=== PATIENT | male | born 1975 | race Two or more races ===

== ENCOUNTER 2018-11-12 18:15 | Emergency (ER) | payer BC, MEDICAID ==
[~2018-11-12] VITALS: Ht 177.8 cm; Wt 93.9 kg
[2018-11-12 18:52] LABS: BASOPHILS # (AUTO) 0.1 /CMM (0.0-0.2); EOSINOPHILS % (AUTO) 2.7 % (0.0-6.0); HEMATOCRIT 44 % (39-51); HEMOGLOBIN 14.7 g/dL (13.5-17.5); LYMPHOCYTES # (AUTO) 4.1 /CMM (0.8-4.8); LYMPHOCYTES % (AUTO) 41.2 % (20.0-44.0); MEAN CORPUSCULAR HGB CONC 33 g/dl (31.0-36.0); MEAN CORPUSCULAR VOLUME 92 fL (80-96); MONOCYTES # (AUTO) 0.9 /CMM (0.1-1.30); MONOCYTES % (AUTO) 8.9 % (2.0-12.0); NEUTROPHILS # (AUTO) 4.6 /CMM (1.8-8.9); NEUTROPHILS % (AUTO) 46.2 % (43.0-81.0); PLATELET COUNT (AUTO) 359 /CMM (150-450); RED BLOOD CELL COUNT(AUTO) 4.81 MIL/uL (4.5-6.0); WHITE BLOOD COUNT (AUTO) 9.9 K/uL (4.3-11.0)
[2018-11-12] MEDS ORDERED: ASPIRIN 325 MG TABLET ONE (18:53)
[2018-11-12] MEDS ORDERED: NITROGLYCERIN PACKET 1 GM PACKET ONE (18:53)
[2018-11-12 18:58] VITALS: BP 151/124
[2018-11-12] MEDS ORDERED: NITROGLYCERIN PACKET 1 GM PACKET TD ONE (19:00)
[2018-11-12] MEDS ORDERED: ASPIRIN 325 MG TABLET PO ONE (19:00)
--- NOTE | 2018-11-12 19:00 | NUR ---
Dizzy/chest pain "Not feeling good Dizzy and having pain on chest have same, TIGHTNESS, DENIES HUFF. SOB N/V
[2018-11-12 19:07] LABS: CALCIUM, SERUM 9.5 mg/dL (8.5-10.1); CARBON DIOXIDE 31 mmol/L (21-32); CHLORIDE 103 mmol/L (98-107); CREATININE 0.8 mg/dL (0.6-1.3); GLUCOSE 97 mg/dL (74-106); POTASSIUM 2.9 mmol/L (3.5-5.1); SODIUM SERUM 140 mmol/L (136-145); UREA NITROGEN, BLOOD 16 mg/dL (7-18)
[2018-11-12 19:14] LABS: ALANINE AMINOTRANSFERASE 52 U/L (12-78); ALKALINE PHOSPHATASE 80 U/L (46-116); ASPARTATE AMINOTRANSFERASE 25 U/L (15-37); BILIRUBIN,DIRECT 0.1 mg/dL (0.0-0.2); BILIRUBIN,TOTAL 0.4 mg/dL (0.2-1.0); TOTAL PROTEIN, SERUM 8.1 g/dL (6.4-8.2)
--- NOTE | 2018-11-12 19:45 | NUR ---
PT HANDOFF TO [facility], PT STABLE AT THIS TIME ,
--- NOTE | 2018-11-12 19:55 | NUR ---
IV removed. Catheter intact and site benign. Pressure and 4x4 applied to site. No bleeding noted.Patient discharged to home in stable condition. Written and verbal after care instructions given. Patient verbalizes understanding of instruction. PT AMBULATORY WITH STEADY GAIT.
== END 2018-11-12 19:57 | disposition home or self-care (01) ==
LOC: ER 18:19
DX: R07.89 Other chest pain (principal); I10 Essential (primary) hypertension; E78.00 Pure hypercholesterolemia, unspecified; I51.7 Cardiomegaly; E87.6 Hypokalemia
CPT/HCPCS: 36415; 71045; 80048; 80076; 84484; 85025; 93005; 99284; A4606

== ENCOUNTER 2018-12-21 20:17 | Emergency (ER) | payer BC, MEDICAID ==
[~2018-12-21] VITALS: Ht 180.3 cm; Wt 86.2 kg
--- NOTE | 2018-12-21 20:23 | NUR ---
PT BIBSELF C/C HUFF AND TINGLING BILAT UPPER EXTREMITIES. PT AOX4. NAD NOTED. RESP EVEN AND UNLABORED. [facility] SPEAKING. PT ON MONITOR IN BED 9. WILL CONTINUE TO MONITOR.
--- NOTE | 2018-12-21 20:30 | NUR ---
VASOTEC UNAVAILABLE IN OMNICELL. RECEIVED FROM [facility].
--- NOTE | 2018-12-21 20:41 | NUR ---
TECH AT BEDSIDE FOR EKG
--- NOTE | 2018-12-21 20:41 | NUR ---
BLOOD DRAWN AND GIVEN TO LAB
[2018-12-21 20:45] LABS: BASOPHILS # (AUTO) 0.1 /CMM (0.0-0.2); BASOPHILS % (AUTO) 1.4 % (0.0-2.0); EOSINOPHILS % (AUTO) 2.8 % (0.0-6.0); HEMATOCRIT 39 % (39-51); HEMOGLOBIN 13.5 g/dL (13.5-17.5); LYMPHOCYTES # (AUTO) 4.7 /CMM (0.8-4.8); LYMPHOCYTES % (AUTO) 45.7 % (20.0-44.0); MEAN CORPUSCULAR HGB CONC 34 g/dl (31.0-36.0); MEAN CORPUSCULAR VOLUME 91 fL (80-96); MONOCYTES # (AUTO) 0.8 /CMM (0.1-1.30); MONOCYTES % (AUTO) 8.2 % (2.0-12.0); NEUTROPHILS # (AUTO) 4.3 /CMM (1.8-8.9); NEUTROPHILS % (AUTO) 41.9 % (43.0-81.0); PLATELET COUNT (AUTO) 351 /CMM (150-450); RED BLOOD CELL COUNT(AUTO) 4.32 MIL/uL (4.5-6.0); WHITE BLOOD COUNT (AUTO) 10.3 K/uL (4.3-11.0)
--- NOTE | 2018-12-21 20:50 | NUR ---
PT TAKEN TO CT VIA [facility]
[2018-12-21 20:54] LABS: CALCIUM, SERUM 8.9 mg/dL (8.5-10.1); CREATININE 0.8 mg/dL (0.6-1.3); POTASSIUM 3.7 mmol/L (3.5-5.1)
[2018-12-21] MEDS ORDERED: ENALAPRILAT DIHYD. (2.5MG/ML) 1.25 MG/ML VIAL IV ONE (21:00)
[2018-12-21 21:06] LABS: ALBUMIN 3.4 g/dL (3.4-5.0); BILIRUBIN,DIRECT 0.1 mg/dL (0.0-0.2); BILIRUBIN,TOTAL 0.2 mg/dL (0.2-1.0); TOTAL PROTEIN, SERUM 7.1 g/dL (6.4-8.2)
[2018-12-21] MEDS ORDERED: ENALAPRILAT INJ (1.25 MG/ML) 1.25 MG/ML VIAL IV ONE (21:10)
[2018-12-21 21:32] VITALS: BP 167/113
--- NOTE | 2018-12-21 21:54 | NUR ---
IV removed. Catheter intact and site benign. Pressure and 4x4 applied to site. No bleeding noted.Patient discharged to home in stable condition. Written and verbal after care instructions given. Patient verbalizes understanding of instruction.
== END 2018-12-21 21:57 | disposition home or self-care (01) ==
LOC: ER 20:18
DX: R51 Headache (principal); I10 Essential (primary) hypertension; E78.00 Pure hypercholesterolemia, unspecified
CPT/HCPCS: 36415; 70450; 80048; 80076; 84484; 85025; 93005; 96374; 99284; J3490

== ENCOUNTER 2019-10-14 09:53 | Emergency (ER) | payer BC, MEDICAID, OTHER ==
[~2019-10-14] VITALS: Ht 175.3 cm; Wt 90.7 kg
--- NOTE | 2019-10-14 10:20 | NUR ---
patient came in to the er c/o high blood pressure since this morning. On room air, breathing evenly and unlabored. connected to the monitor and pulse ox. will continue to monitor accordingly.
[2019-10-14] MEDS ORDERED: hydrALAZINE HCL IV 20 MG VIAL ONE ×2 (10:58→12:04)
[2019-10-14] MEDS ORDERED: hydrALAZINE HCL IV 20 MG VIAL IV ONE (11:00)
[2019-10-14 11:02] LABS: BASOPHILS # (AUTO) 0.1 /CMM (0.0-0.2); BASOPHILS % (AUTO) 1.2 % (0.0-2.0); EOSINOPHILS % (AUTO) 2.3 % (0.0-6.0); HEMATOCRIT 41 % (39-51); HEMOGLOBIN 14.2 g/dL (13.5-17.5); LYMPHOCYTES # (AUTO) 3.4 /CMM (0.8-4.8); LYMPHOCYTES % (AUTO) 35.1 % (20.0-44.0); MEAN CORPUSCULAR HGB CONC 34 g/dl (31.0-36.0); MEAN CORPUSCULAR VOLUME 93 fL (80-96); MONOCYTES # (AUTO) 0.8 /CMM (0.1-1.30); MONOCYTES % (AUTO) 7.8 % (2.0-12.0); NEUTROPHILS # (AUTO) 5.2 /CMM (1.8-8.9); NEUTROPHILS % (AUTO) 53.6 % (43.0-81.0); PLATELET COUNT (AUTO) 329 /CMM (150-450); RED BLOOD CELL COUNT(AUTO) 4.45 MIL/uL (4.5-6.0); WHITE BLOOD COUNT (AUTO) 9.7 K/uL (4.3-11.0)
[2019-10-14 11:06] LABS: CALCIUM, SERUM 9.4 mg/dL (8.5-10.1); CARBON DIOXIDE 29 mmol/L (21-32); CHLORIDE 103 mmol/L (98-107); CREATININE 0.7 mg/dL (0.6-1.3); GLUCOSE 101 mg/dL (74-106); POTASSIUM 3.9 mmol/L (3.5-5.1); SODIUM SERUM 140 mmol/L (136-145); UREA NITROGEN, BLOOD 17 mg/dL (7-18)
[2019-10-14 11:19] LABS: ALANINE AMINOTRANSFERASE 16 U/L (12-78); ALBUMIN 3.8 g/dL (3.4-5.0); ALKALINE PHOSPHATASE 84 U/L (46-116); ASPARTATE AMINOTRANSFERASE 18 U/L (15-37); B-TYPE NATRIURETIC PEPTIDE 161 PG/ML (0-125); BILIRUBIN,TOTAL 0.4 mg/dL (0.2-1.0); TOTAL PROTEIN, SERUM 7.9 g/dL (6.4-8.2)
[2019-10-14] MEDS ORDERED: CARV6.252 PO (11:39)
[2019-10-14] MEDS ORDERED: LISI-607 PO (11:39)
--- NOTE | 2019-10-14 11:45 | NUR ---
CALLED NURSING SUP FOR BED
--- NOTE | 2019-10-14 12:43 | NUR ---
report given to Alexis SOTO for tere.
[2019-10-14 13:17] VITALS: BP 183/82
--- NOTE | 2019-10-14 13:17 | NUR ---
Patient does not wish to proceed with medical care recommended by Dr. Stanton. Patient given information related to possible complications, up to and including , which could occur as a result of leaving the hospital at this time. Patient verbalizes understanding of risks involved due to leaving against medical advice. Patient has signed AMA form.
[2019-10-14] MEDS ORDERED: ACETAMINOPHEN 325 MG TABLET PO PRN (13:30)
[2019-10-14] MEDS ORDERED: hydrALAZINE HCL 50 MG TABLET PO PRN (13:30)
[2019-10-14] MEDS ORDERED: Z GUARD REMEDY 2 OZ OINT TP PRN (13:30)
[2019-10-14] MEDS ORDERED: ENOXAPARIN SODIUM 40 MG/0.4 ML DISP.SYRIN SQ SCH (13:30)
[2019-10-14] MEDS ORDERED: ONDANSETRON HCL/PF 4 MG/2 ML VIAL IVP PRN (13:30)
[2019-10-14] MEDS ORDERED: ZOLPIDEM TARTRATE 5 MG TABLET PO PRN (13:30)
--- NOTE | 2019-10-14 14:20 | NUR ---
RT NOTE EKG ATTEMPTED. PATIENT WAS ABSENT FROM ROOM. WILL TRY AGAIN LATER.
[2019-10-14] MEDS ORDERED: CARVEDILOL 6.25 MG TABLET PO SCH (17:00)
[2019-10-14] MEDS ORDERED: ATORVASTATIN 40 MG TABLET PO SCH (22:00)
[2019-10-15] MEDS ORDERED: LISINOPRIL (5MG) 5 MG TABLET PO SCH (09:00)
[2019-10-15] MEDS ORDERED: ASPIRIN EC 81 MG TABLET.DR PO SCH (09:00)
== END 2019-10-14 13:17 | disposition left against medical advice (07) ==
LOC: ER 09:53 → TELE 12:16 → UNDOADMIN 12:16
DX: I16.1 Hypertensive emergency (principal); R07.89 Other chest pain; Z79.899 Other long term (current) drug therapy
CPT/HCPCS: 36415; 71045; 80048; 80076; 83880; 84484; 85025; 85730; 93005 ×2; 96374; 99284; J0360 ×2

== ENCOUNTER 2019-12-18 19:45 | Emergency (ER) | payer MEDICAID ==
[~2019-12-18] VITALS: Ht 180.3 cm; Wt 90.7 kg
[~2019-12-18 19:45] MED LIST: CARV6.252 PO; LISI-607 PO
--- NOTE | 2019-12-18 19:55 | NUR ---
PT AAOX4. AMBULATORY WITH STEADY GAIT. BIBFRIEND C/O TRAUMA TO R MIDDLE FINGER S/P FALLING FROM LADDER. NO ACUTE DISTRESS NOTED. VSS. NO NEURO DEFICIT, PERRLA.
--- NOTE | 2019-12-18 19:58 | NUR ---
XRAY AT BEDSIDE
[2019-12-18] MEDS ORDERED: HYDROCODONE/APAP 5/325MG TABLET ONE ×2 (20:00→20:32)
[2019-12-18] MEDS ORDERED: HYDROCODONE/APAP 5/325MG TABLET PO ONE ×2 (20:00→20:30)
[2019-12-18] MEDS ORDERED: MIDAZOLAM HCL 5 MG/5ML VIAL IV ONE (20:00)
--- NOTE | 2019-12-18 20:34 | NUR ---
PT PLACED IN FINGER SPLINT BY EMT
--- NOTE | 2019-12-18 20:47 | NUR ---
Patient discharged to home in stable condition. Written and verbal after care instructions given. Patient verbalizes understanding of instruction and RX. Explained to friend the discharge as well. PT Ambulated with steady gait. vss.
[2019-12-18 20:48] VITALS: BP 143/89
== END 2019-12-18 20:49 | disposition home or self-care (01) ==
LOC: ER 19:45
DX: S62.612A Displaced fracture of proximal phalanx of right middle finger, initial encounter for closed fracture (principal); I10 Essential (primary) hypertension; Z79.899 Other long term (current) drug therapy; W18.39XA Other fall on same level, initial encounter; Y93.89 Activity, other specified; Y92.89 Other specified places as the place of occurrence of the external cause; Y99.8 Other external cause status
CPT/HCPCS: 73140-TC

== ENCOUNTER 2021-03-30 09:43 | Emergency (ER) | payer MEDICAID ==
[~2021-03-30] VITALS: Ht 185.4 cm; Wt 104.8 kg
[~2021-03-30 09:43] MED LIST changes: -LISI-607 PO; +LISI-768 PO
--- NOTE | 2021-03-30 10:03 | NUR ---
STARTED RAC G 18 LINE, BLOOD SPECIMEN COLLECTED AND SENT TO THE LAB. THE LINE IS SALINE LOCKED.
--- NOTE | 2021-03-30 10:10 | NUR ---
BIB SELF WITH L SIDED CHEST PAIN, PAINFUL TAKING BREATHS THAT STARTED LAST NIGHT RATES PAIN 10/10.
[2021-03-30] MEDS ORDERED: KETOROLAC TROMETHAMINE INJ 30 MG/ML VIAL ONE (10:18)
[2021-03-30 10:19] LABS: BASOPHILS # (AUTO) 0.1 K/uL (0.0-0.2); BASOPHILS % (AUTO) 0.9 % (0.0-2.0); EOSINOPHILS % (AUTO) 2.1 % (0.0-6.0); HEMATOCRIT 42 % (39-51); LYMPHOCYTES # (AUTO) 3.6 K/uL (0.8-4.8); LYMPHOCYTES % (AUTO) 26.4 % (20.0-44.0); MEAN CORPUSCULAR HGB CONC 34 g/dl (31.0-36.0); MEAN CORPUSCULAR VOLUME 91 fL (80-96); MONOCYTES # (AUTO) 1.2 K/uL (0.1-1.30); MONOCYTES % (AUTO) 9.1 % (2.0-12.0); NEUTROPHILS # (AUTO) 8.3 K/uL (1.8-8.9); NEUTROPHILS % (AUTO) 61.5 % (43.0-81.0); PLATELET COUNT (AUTO) 355 K/uL (150-450); WHITE BLOOD COUNT (AUTO) 13.6 K/uL (4.3-11.0)
[2021-03-30] MEDS: KETOROLAC TROMETHAMINE INJ 30 MG/ML VIAL IV ONE (10:25)
[2021-03-30 10:28] LABS: CALCIUM, SERUM 9.2 mg/dL (8.5-10.1); CARBON DIOXIDE 27 mmol/L (21-32); CHLORIDE 104 mmol/L (98-107); GLUCOSE 101 mg/dL (74-106); POTASSIUM 4.1 mmol/L (3.5-5.1); SODIUM SERUM 141 mmol/L (136-145); UREA NITROGEN, BLOOD 18 mg/dL (7-18)
--- NOTE | 2021-03-30 10:45 | NUR ---
COVID SWAB AND RAPID INFLUENZA SWABS DONE AND SENT TO THE LAB
[2021-03-30] MEDS ORDERED: MORPHINE SULFATE INJ 4 MG/ML DISP.SYRIN ONE (11:28)
[2021-03-30] MEDS: MORPHINE SULFATE INJ 2 MG/ML DISP.SYRIN IV ONE (11:39)
[2021-03-30] MEDS ORDERED: IOHEXOL-300 100 ML VIAL IV ONE (11:53)
[2021-03-30] MEDS ORDERED: IOHEXOL-350 100 ML VIAL IV ONE (11:54)
[2021-03-30] MEDS ORDERED: IV NS 0.9% 250 ML IV ONE (11:54)
[2021-03-30] MEDS ORDERED: AZIT250T PO (13:07)
[2021-03-30] MEDS ORDERED: ALBU8.5H8 INH (13:07)
[2021-03-30] MEDS ORDERED: HYDR-4275 PO (13:07)
[2021-03-30] MEDS ORDERED: IBUP-1957 PO (13:07)
--- NOTE | 2021-03-30 13:23 | NUR ---
Patient discharged to home in stable condition. Written and verbal after care instructions given. Patient verbalizes understanding of instruction.
[2021-03-30 13:24] VITALS: BP 131/88
== END 2021-03-30 13:24 | disposition home or self-care (01) ==
LOC: ER 09:49
DX: R07.81 Pleurodynia (principal); D72.829 Elevated white blood cell count, unspecified; Z20.822 Contact with and (suspected) exposure to COVID-19; F17.210 Nicotine dependence, cigarettes, uncomplicated; Z79.899 Other long term (current) drug therapy; I11.9 Hypertensive heart disease without heart failure; R79.1 Abnormal coagulation profile; J98.11 Atelectasis
CPT/HCPCS: 36415; 71045; 71275; 80048; 84484; 85025; 85378; 87426; 87804; 93005; 96374; 96375; 99285; 99406; C9803; J1885; J2270; J7050; Q9967